=== PATIENT | female | born 2000 | race Caucasian/White ===

== ENCOUNTER 2019-03-03 13:54 | Emergency (ER) | payer OTHER ==
[2019-03-03 14:33] VITALS: BP 116/76
--- NOTE | 2019-03-03 15:02 | UC ---
Complaint Female HPI - HPI Summary HPI Summary: Pt presents with c/o dysuria, thick, yellow, discharge, foul smelling X 1 week. Pt is concerned that she may have a STD. Pt also c/o pelvic discomfort - History Of Current Complaint Chief Complaint: UCGU Stated Complaint: PERSONAL Time Seen by Provider: 03/03/19 14:46 Hx Obtained From: Patient Hx Last Menstrual Period: 02/21/19 ?: No Onset/Duration: Gradual Onset, Lasting Days, Still Present, Worse Since - onset Timing: Constant Severity Initially: Mild Severity Currently: Mild Pain Intensity: 4 Character: Dull, Cramping, Colicy Aggravating Factor(s): Urination Associated Signs And Symptoms: Positive: Vaginal Discharge - Risk Factors Ectopic Risk Factor: Negative Ovarian Torsion Risk Factor: Reproductive Age - Allergies/Home Medications Allergies/Adverse Reactions: Allergies Allergy/AdvReac Type Severity Reaction Status Date / Time clindamycin Allergy Hives Verified 03/03/19 14:28 Penicillins Allergy Anaphylatic Verified 03/03/19 14:28 Shock Home Medications: Home Medications Albuterol HFA INHALER* [Ventolin HFA Inhaler*] 1 - 2 puff INH Q4H PRN 03/03/19 [ History Confirmed 03/03/19] Cetirizine* [ZyrTEC 10 MG TAB*] 10 mg PO DAILY 03/03/19 [History Confirmed 03/03] Oral Control 1 tab PO DAILY 03/03/19 [History Confirmed 03/03/19] PMH/Surg Hx/FS Hx/Imm Hx Previously Healthy: Yes - Surgical History Surgical History: None - Family History Known Family History: Positive: Cardiac Disease - Social History Occupation: Student Lives: Dormitory/Roommates Alcohol Use: Occasionally Substance Use Type: None Smoking Status (MU): Never Smoked Tobacco Have You Smoked in the Last Year: No - Immunization History Vaccination Up to Date: Yes Review of Systems All Other Systems Reviewed And Are Negative: Yes Constitutional: Positive: Negative Skin: Positive: Negative Eyes: Positive: Negative ENT: Positive: Negative Respiratory: Positive: Negative Cardiovascular: Positive: Negative Gastrointestinal: Positive: Negative Genitourinary: Positive: Dysuria, Vaginal/Penile Burning, Vaginal/Penile Discharge Motor: Positive: Negative Neurovascular: Positive: Negative Musculoskeletal: Positive: Negative Neurological: Positive: Negative Psychological: Positive: Negative Is Patient Immunocompromised?: No Physical Exam Triage Information Reviewed: Yes Appearance: Well-Appearing Vital Signs: Initial Vital Signs Temp 98.3 F 03/03/19 14:24 Pulse 99 03/03/19 14:24 Resp 16 03/03/19 14:24 BP 116/76 03/03/19 14:24 Pulse Ox 100 03/03/19 14:24 Vital Signs Reviewed: Yes Eye Exam: Normal ENT Exam: Normal Dental Exam: Normal Neck exam: Normal Respiratory Exam: Normal Cardiovascular Exam: Normal Abdominal Exam: Normal Abdomen Description: Positive: Nontender Musculoskeletal Exam: Normal Neurological Exam: Normal Psychological Exam: Normal Skin Exam: Normal Complaint Female Dx - Differential Dx/Diagnosis Differential Diagnosis/HQI/PQRI: Sexually Transmitted Disease, Urinary Tract Infection Provider Diagnosis: Vaginitis, UTI (urinary tract infection) Discharge ED - Sign-Out/Discharge Documenting (check all that apply): Patient Departure All imaging exams completed and their final reports reviewed: No Studies - Discharge Plan Condition: Stable Disposition: HOME Prescriptions: Fluconazole 150 MG TAB* [Diflucan 150 MG TAB*] 150 mg PO DAILY #5 tablet metroNIDAZOLE VAGINAL 0.75%* 1 applic VAGINAL BEDTIME 5 Days #5 tube Nitrofurantoin Monohyd/M-Cryst [Macrobid 100 mg Capsule] 100 mg PO Q12H #10 cap Patient Education Materials: Vaginitis (ED) Referrals: [facility] [Outside] - If Needed No Primary Care Phys,NOPCP [Primary Care Provider] - - Billing Disposition and Condition Condition: STABLE Disposition: Home - Attestation Statements Provider Attestation: I was available for consult. This patient was seen by the ROSA. The patient was not presented to , seen by or examined by la -Martin Walker MD Addendum entered and electronically signed by Akin SHIN,Leeann Diez NP 07/21 17:16: UC Addendum Addendum: Pelvic exam: Thick yellow discharge in vaginal canal, cervix non-friable, no strawberry cervix. no lesions or vessicles.
[2019-03-05 14:04] LABS: Chlamydia trachomatis NAA Negative (Negative); Neisseria gonorrhoeae (GC) NAA Negative (Negative)
== END 2019-03-03 15:30 | disposition home or self-care (01) ==
LOC: UCCORT 13:54
DX: N76.0 Acute vaginitis (principal); N39.0 Urinary tract infection, site not specified; Z88.0 Allergy status to penicillin; Z88.1 Allergy status to other antibiotic agents
CPT/HCPCS: 81003; 87086; 87106; 87480; 87491; 87510; 87591; 87660; 99202; G0463

== ENCOUNTER 2019-03-10 07:05 | Emergency (ER) | payer OTHER ==
[2019-03-10 07:15] VITALS: BP 110/64
--- NOTE | 2019-03-10 07:52 | UC ---
Respiratory Complaint HPI - HPI Summary HPI Summary: 18 year old female presents with complaint of worsening sinus pain and chest congestion over the past week. She states she has tried otc medications recommended by her [facility]. Awakens with a productive cough, denies fever. Notes slight increase in her asthma sx that is relieved by her albuterol inhaler. - History of Current Complaint Chief Complaint: UCRespiratory Stated Complaint: COUGH CONGESTION Time Seen by Provider: 03/10/19 07:45 Hx Obtained From: Patient Hx Last Menstrual Period: 02/20/19 Onset/Duration: Gradual Onset, Lasting Weeks - One week. Severity Initially: Mild Severity Currently: Moderate Pain Intensity: 0 Character: Cough: Nonproductive Aggravating Factors: Recumbent Position Alleviating Factors: Bronchodilator, Upright Position Associated Signs And Symptoms: Positive: Nasal Congestion, Sinus Discomfort - Maxillary sinus tenderness. Negative: Dyspnea, Fever, Chills, Pleuritic Chest Pain, Wheezing, Hemoptysis - Allergies/Home Medications Allergies/Adverse Reactions: Allergies Allergy/AdvReac Type Severity Reaction Status Date / Time clindamycin Allergy Hives Verified 03/10/19 07:16 Penicillins Allergy Anaphylatic Verified 03/10/19 07:16 Shock PMH/Surg Hx/FS Hx/Imm Hx Previously Healthy: Yes Respiratory History: Asthma - Surgical History Surgical History: None - Family History Known Family History: Positive: Cardiac Disease - Social History Alcohol Use: Occasionally Substance Use Type: None Smoking Status (MU): Never Smoked Tobacco Have You Smoked in the Last Year: No - Immunization History Vaccination Up to Date: Yes Review of Systems All Other Systems Reviewed And Are Negative: Yes Constitutional: Negative: Fever, Chills Skin: Negative: Rash Eyes: Negative: Blurred Vision, Diplopia, Drainage, Eye Redness ENT: Positive: Nasal Discharge, Sinus Congestion, Sinus Pain/Tenderness - maxillary. Negative: Epistaxis, Sore Throat, Ear Ache Respiratory: Positive: Shortness Of Breath - Slight increase from baseline, relieved with albuterol., Cough Cardiovascular: Negative: Palpitations, Chest Pain Gastrointestinal: Negative: Abdominal Pain, Vomiting, Diarrhea, Nausea Genitourinary: Negative: Dysuria, Hematuria, Frequency, Urgency, Vaginal/Penile Discharge Motor: Negative: Decreased ROM Musculoskeletal: Negative: Calf Tenderness, Decreased ROM, Edema Neurological: Negative: Headache, Weakness Is Patient Immunocompromised?: No Physical Exam Triage Information Reviewed: Yes Appearance: Well-Appearing Vital Signs: Initial Vital Signs Temp 99.1 F 03/10/19 07:13 Pulse 83 03/10/19 07:13 Resp 18 03/10/19 07:13 BP 110/64 03/10/19 07:13 Pulse Ox 100 03/10/19 07:13 Vital Signs Reviewed: Yes Eyes: Positive: Conjunctiva Clear ENT: Positive: Pharynx normal, Nasal congestion, TMs normal, Hoarse voice, Sinus tenderness - Maxillary. Negative: Tonsillar swelling, Muffled voice Neck: Positive: Supple, Nontender, No Lymphadenopathy Respiratory: Positive: Lungs clear, Normal breath sounds. Negative: Crackles, Rhonchi, Stridor, Wheezing Cardiovascular: Positive: RRR, No Murmur Abdomen Description: Positive: Nontender, Soft Musculoskeletal: Positive: ROM Intact Neurological: Positive: Alert Skin: Negative: Rashes Respiratory Course/Dx - Course Course Of Treatment: Sx for one week. Tried otc recommendations that [facility] recommended without relief. - Differential Dx/Diagnosis Differential Diagnosis/HQI/PQRI: Asthma, Bronchitis Provider Diagnosis: Acute sinusitis Discharge ED - Sign-Out/Discharge Documenting (check all that apply): Patient Departure All imaging exams completed and their final reports reviewed: No Studies - Discharge Plan Condition: Stable Disposition: HOME Prescriptions: Azithromyxin JACIEL (NF) [Z-Jaciel (Zithromax) 250 mg tabs #6] 2 tab PO .TODAY, THEN 1 DAILY #6 tab Fluconazole 150 MG TAB* [Diflucan 150 MG TAB*] 150 mg PO ONCE #1 tablet Patient Education Materials: Sinusitis (ED) Referrals: No Primary Care Phys,NOPCP [Primary Care Provider] - Additional Instructions: Take all the antibiotics as prescribed. You may also take ibuprofen and Mucinex as needed. Only take the Diflucan if symptoms of yeast infection develop. Follow -up if your symptoms persist or worsen. - Billing Disposition and Condition Condition: STABLE Disposition: Home
== END 2019-03-10 08:08 | disposition home or self-care (01) ==
LOC: UCCORT 07:05
DX: J01.90 Acute sinusitis, unspecified (principal)
CPT/HCPCS: 99212; G0463

== ENCOUNTER 2019-09-29 12:48 | Emergency (ER) | payer MEDICAID, OTHER ==
--- NOTE | 2019-09-29 13:26 | UC ---
General HPI - HPI Summary HPI Summary: 19 year old female presents with complaint of her right earring ripping through her ear two nights ago and sinus congestion and pressure after traveling to [place] last week. She denies active bleeding, no pain from the laceration. Patient stated the area was already stretched out from wearing heavy earrings. She notes a runny nose, facial pressure, decreased smell and taste, and green productive cough for two weeks. Subjective fever two nights ago, did not check her temperature. No abnormal shortness of breath and has not needed her rescue inhaler. Stated this occurs yearly at the beginning of allergy season for her. Started using Zyrtec last week with some improvement of sx. States she few from [place] to [place] on 09/15/19 and returned from [place] through [facility] on 09/20/19. Denies known contact with anyone who has been isolated, quarantined, or tested positive for COVID-19. Per CDC guidelines COVID-19 testing is recommended. - History of Current Complaint Chief Complaint: UCRespiratory Stated Complaint: EAR LAC/CONGESTION Time Seen by Provider: 09/29/19 13:10 Hx Last Menstrual Period: 09/25/19 Pain Intensity: 0 - Allergy/Home Medications Allergies/Adverse Reactions: Allergies Allergy/AdvReac Type Severity Reaction Status Date / Time clindamycin Allergy Hives Verified 09/29/19 13:09 Penicillins Allergy Anaphylatic Verified 09/29/19 13:09 Shock Home Medications: Home Medications Albuterol HFA INHALER* [Ventolin HFA Inhaler*] 1 - 2 puff INH Q4H PRN 03/03/19 [ History Confirmed 09/29/19] Cetirizine* [ZyrTEC 10 MG TAB*] 10 mg PO DAILY PRN 03/03/19 [History Confirmed 09/29/19] PMH/Surg Hx/FS Hx/Imm Hx Previously Healthy: Yes Respiratory History: Asthma - Surgical History Surgical History: None - Family History Known Family History: Positive: Cardiac Disease - Social History Alcohol Use: Occasionally Substance Use Type: None Smoking Status (MU): Never Smoked Tobacco Have You Smoked in the Last Year: No - Immunization History Vaccination Up to Date: Yes Review of Systems All Other Systems Reviewed And Are Negative: Yes Constitutional: Positive: Fever - two days ago, now resolved. Skin: Positive: Negative Eyes: Positive: Negative ENT: Positive: Nasal Discharge, Sinus Congestion Respiratory: Positive: Shortness Of Breath - mild due to her asthma.. Negative : Cough Cardiovascular: Positive: Chest Pain. Negative: Palpitations Gastrointestinal: Negative: Abdominal Pain, Vomiting, Diarrhea, Nausea Genitourinary: Positive: Negative Motor: Positive: Negative Neurovascular: Positive: Negative Musculoskeletal: Positive: Negative Neurological/Mental Status: Positive: Negative Psychological: Positive: Negative Is Patient Immunocompromised?: No Physical Exam Triage Information Reviewed: Yes Appearance: Well-Appearing, Well-Nourished Vital Signs Reviewed: Yes Eye Exam: Normal ENT: Positive: Pharynx normal, Nasal congestion, TMs normal Neck: Positive: Supple, Nontender, No Lymphadenopathy Respiratory: Positive: Lungs clear, No respiratory distress. Negative: Crackles , Rhonchi, Wheezing Cardiovascular: Positive: RRR, No Murmur Abdomen Description: Positive: Nontender, Soft Musculoskeletal Exam: Normal Neurological Exam: Normal Psychological Exam: Normal Skin Exam: Normal Course/Dx - Course Course Of Treatment: COVID-19 testing and self isolation is recommended. URI sx are mild at this time , symptomatic treatment is recommended. Due to laceration being 48 hours old, it is too old to repair. I recommend she follow with a Plastic Surgeon for her ear laceration. - Diagnoses Provider Diagnosis: Upper respiratory infection Discharge ED - Sign-Out/Discharge Documenting (check all that apply): Patient Departure All imaging exams completed and their final reports reviewed: No Studies - Discharge Plan Condition: Stable Disposition: HOME Patient Education Materials: Upper Respiratory Infection (DC) Forms: COVID-19 Tested & Isolation Referrals: No Primary Care Phys,NOPCP [Primary Care Provider] - Julio Gutierres MD [Medical Doctor] - Additional Instructions: Follow self isolation guidelines until you are contacted with your COVID-19 results as per instructions attached. Your flu test was negative. Recommend symptomatic treatment for your sinus congestion with an antihistamine and Tylenol as needed. Contact the plastic surgeon in a few weeks if your ear does not heal on it's own. Follow-up if your respiratory symptoms persist or worsen. - Billing Disposition and Condition Condition: STABLE Disposition: Home
[2019-09-29 13:52] VITALS: BP 104/68
--- OUTSIDE RECORDS SUMMARY | 2019-09-29 14:02 | XMS REPORT | Continuity of Care Document ---
:2000 External Reference #:[id number] Author Name Ambreen Rivera NP Address [address] [place] [address] Care Team Providers Name Role Phone Yes Care Team Information Judicial Reporter Unavailable Problems Description No Information Available Social History Type Date Description Comments Sex Female Tobacco Use Reviewed: 05/09/19 Never Smoked Cigars Tobacco Use Reviewed: 05/09/19 Never Smoked A Pipe Smoking Status Reviewed: 05/09/19 Never Smoked A Pipe Tobacco Use Reviewed: 05/09/19 Never Used Smokeless Tobacco ETOH Use Occasionally consumes alcohol Tobacco Use Reviewed: 05/09/19 Patient has never smoked Recreational Drug Use Denies Drug Use Recreational Drug Use Teaching provided regarding Naloxone/Narcan Training Available At [facility] Tattoo/Piercing Tattoos professionally done Allergies, Adverse Reactions, Alerts Active Allergies Reaction Severity Comments Date Environmental 05/09/2019 Penicillin 05/09/2019 Clindamycin 05/09/2019 Cats 08/13/2019 Medications Active Medications SIG Qnty Indications Ordering Provider Date Fluconazole one tab orally x 1tabs B37.3 Ambreen Rivera NP 08/13/2019 150mg Tablets one dose Ventolin HFA Ambreen Rivera NP 05/09/2019 108(90Base) mcg/Act Aerosol Zyrtec Allergy Unknown History Medications Fluconazole one tab orally x one 1tabs Ambreen Rivera, 06/03/2019 - 150mg dose [employer] EVALUATION MANAGER 08/13/2019 Tablets Doxycycline Hyclate one by mouth twice a 14caps Ambreen Rivera, 2018 - day x 7 days [employer] EVALUATION MANAGER 08/13/2019 100mg Capsules Doxycycline Hyclate one by mouth twice a 14caps Ambreen Rivera, 2018 - day x 7 days [employer] EVALUATION MANAGER 08/13/2019 100mg Capsules Terconazole one applicatorful 45gm B37.3 Ambreen Rivera, 05/09/2019 - 0.4% vaginally x 7 days [employer] EVALUATION MANAGER 08/13/2019 Cream at at bedtime Immunizations Description No Information Available Vital Signs Date Vital Result Comment 08/13/2019 12:37pm Body Temperature 97.9 F BP Systolic 98 mmHg electronic BP Diastolic 70 mmHg electronic Heart Rate 104 /min Height 62.5 inches 5'2.50" Weight 124.00 lb BMI (Body Mass Index) 22.3 kg/m2 05/09/2019 12:02pm Body Temperature 97.9 F BP Systolic 99 mmHg BP Diastolic 68 mmHg Heart Rate 101 /min Height 62.5 inches 5'2.50" Weight 123.00 lb BMI (Body Mass Index) 22.1 kg/m2 Results Test Acquired Date Facility Test Result H/L Range Note Laboratory test 08/13/2019 [facility] HIV Rapid... non reactive finding Hep C Rapid Test non reactive Wet Prep.... 08/13/2019 [facility] WBC Smear many Clue Cells Vag Fluid Wet Prep 0 Anna Wet Prep many Lactobacillus Wet Prep few Whiff Wet Prep negative Bacteria Wet Prep n/a PH Wet Prep 4.5 Misc Other Test no trich sen Laboratory test finding 08/13/2019 [facility] Test negative Urine..... Laboratory test finding 05/09/2019 [facility] Mycoplasma Hominis/ see note 1 Ureaplasma Culture Enhanced PDF Report [id number] SEE IMAGE Laboratory test finding 05/09/2019 [facility] HIV Rapid... non reactive Hep C Rapid Test non reactive Chlamydia/N. 05/09/2019 [facility]BL Chlamydia NOT DETECTED Normal Not Detected Gonorrhoeae Rna, Trachomatis Tma, Uroge Rna, Tma, Urogenital Neisseria Gonorrhoeae Rna, Tma, Urogenital NOT DETECTED Normal Not Detected Comment (SEE NOTE) 2 Laboratory test finding 05/09/2019 [facility] Enhanced PDF Report SEE IMAGE [id number] Wet Prep.... 05/09/2019 [facility] WBC Smear fwe Clue Cells Vag Fluid Wet Prep 0 Anna Wet Prep many Lactobacillus Wet Prep few Whiff Wet Prep neg. Bacteria Wet Prep n/a PH Wet Prep 4.5 Misc Other Test no trich seen Laboratory test finding 05/09/2019 [facility] Trichomonas negative 1 UREAPLASMA CULT (MYCO. T) RESULT/COMMENT: * Ureaplasma urealyticum isolated MYCOPLASMA HOMINIS CULT. RESULT/COMMENT: Mycoplasma hominis not isolated. => REVISED: Change in test result(s) PLEASE DISREGARD PREVIOUSLY REPORTED INFORMATION BELOW: (The information below was originally reported on 05/16/2019 at 7:12 PM) MYCOPLASMA HOMINIS/ UREAPLASMA CULTURE see note ABN UREAPLASMA CULT (MYCO. T) RESULT/COMMENT: * Ureaplasma urealyticum isolated 2 This test was performed using the APTIMA COMBO2 Assay ([employer] The analytical performance characteristics of this assay, when used to test [employer] specimens have been determined by [employer]. Procedures Description No Information Available Medical Devices Description No Information Available Encounters Type Date Location Provider Dx Diagnosis Office Visit 05/09/2019 [facility] Ambreen Rivera NP B37.3 Candidiasis of vulva 11:30a and vagina Z30.41 Encounter for surveillance of contraceptive pills Z11.3 Encntr screen for infections w sexl mode of transmiss Z11.4 Encounter for screening for human immunodeficiency virus Z11.59 Encounter for screening for other viral diseases Z13.9 Encounter for screening, unspecified Assessments Date Code Description Provider 08/13/2019 B37.3 Candidiasis of vulva and vagina Ambreen Rivera NP 08/13/2019 Z30.09 Encounter for other general counseling and Ambreen Rivera NP advice on contraception 08/13/2019 Z11.3 Encounter for screening for infections with a Ambreen Rivera NP predominantly sexual mode of transmission 08/13/2019 Z11.4 Encounter for screening for human Ambreen Rivera NP immunodeficiency virus 08/13/2019 Z11.59 Encounter for screening for other viral diseases Ambreen Rivera NP 08/13/2019 Z32.02 Encounter for test, result negative Ambreen Rivera NP 08/13/2019 Z12.4 Encounter for screening for malignant neoplasm Ambreen Rivera NP of cervix 05/09/2019 B37.3 Candidiasis of vulva and vagina Ambreen Rivera NP 05/09/2019 Z30.41 Encounter for surveillance of contraceptive Ambreen Rivera NP pills 05/09/2019 Z11.3 Encounter for screening for infections with a Ambreen M Kelchner, [employer] EVALUATION MANAGER predominantly sexual mode of transmission 05/09/2019 Z11.4 Encounter for screening for human Ambreen Rivera NP immunodeficiency virus [HIV] 05/09/2019 Z11.59 Encounter for screening for other viral diseases Ambreen Rivera NP 05/09/2019 Z13.9 Encounter for screening, unspecified Ambreen Rivera NP Plan of Treatment 08/13/2019 - Ambreen Merlin Nicole, NPB37.3 Candidiasis of vulva and vaginaNew Medication:Fluconazole 150 mg - one tab orally x one doseComments:Patient has recurrent yeast infection. She took one tablet Fluconazole last night. Advised one more tab fluconazole in 72 hours from last dose. Advised no sex. No alcohol. Avoid sugar. Start probiotics. Eat low sugar yogurt. Follow up one week. If she still has a yeast infection, consider blood tests for thyroid and DM. Patient states understanding.Follow up:one week with KIPZ30.09 Encounter for other general counseling and advice on contraceptionComments:Patient stopped her oral contraception 3 weeks ago upon advise from her CORPORATE BANKING OFFICER due to her repeated yeast infections. She used a condom for sex 2 weeks ago but condom broke. UPT is negative today. Advised patient to abstain until yeast infection is resolved. She is possibly interested in an IUD but is notsure. Will discuss contraception options further at her follow up appointment.Z11.3 Encounter for screening for infections with a predominantly sexual mode of transmissionComments:Reviewed STD risks and prevention with patient. Patient states understanding.Z11.4 Encounter for screening for human immunodeficiency mwipcK94.59 Encounter for screening for other viral [id number] Encounter for test, result [id number] Encounter for screening for malignant neoplasm of cervix Functional Status Description No Information Available Mental Status Description No Information Available Referrals Description No Information Available
--- OUTSIDE RECORDS SUMMARY | 2019-09-29 14:02 | XMS REPORT | Continuity of Care Document ---
:1998 External Reference #:[id number] Author Name Ambreen Rivera NP Address [address] [place] [address] Care Team Providers Name Role Phone Yes Care Team Information Business Continuity Analyst Unavailable Problems Description No Information Available Social [...] Teaching provided regarding Naloxone/Narcan Training Available At [facility] Tattoo/Piercing Tattoos professionally done Allergies, Adverse Reactions, [...] 1tabs Ambreen Rivera, 06/03/2019 - 150mg dose BUSINESS PROGRAMMER 08/13/2019 Tablets Doxycycline Hyclate one by mouth twice a 14caps Ambreen Rivera, 2018 - day x 7 days BUSINESS PROGRAMMER 08/13/2019 100mg Capsules Doxycycline Hyclate one by mouth twice a 14caps Ambreen Rivera, 2018 - day x 7 days BUSINESS PROGRAMMER 08/13/2019 100mg Capsules Terconazole one applicatorful 45gm B37.3 Ambreen Rivera, 05/09/2019 - 0.4% vaginally x 7 days BUSINESS PROGRAMMER 08/13/2019 Cream at at bedtime Immunizations Description [...] Date Facility Test Result H/L Range Note Thinprep Tis 08/13/2019 [facility] Clinical None given Normal Reactive/ Pap Reflex HPV Information: cand/t Mrna E6/E7 LMP: NONE GIVEN Normal Prev. Pap: NONE GIVEN Normal Prev. BX: NONE GIVEN Normal Source: [facility] Normal Statement Of Adequacy: (SEE NOTE) Normal 1 Interpretation/Result: (SEE NOTE) 2 Infection: Fungal organisms <SEE NOTE> Normal 3 Comment: This Pap test pierre <SEE NOTE> Normal 4 Tin Cutter: (SEE NOTE) Normal 5 Pathologist: (SEE NOTE) Normal 6 Comment (SEE NOTE) 7 Laboratory test 08/13/2019 [facility] Enhanced PDF SEE IMAGE finding Report [id number] Chlamydia/N. 08/13/2019 [facility] Chlamydia NOT DETECTED Normal Not Detected Gonorrhoeae Rna, Trachomatis Tma, Uroge Rna, Tma, Urogenital Neisseria Gonorrhoeae Rna, Tma, Urogenital NOT DETECTED Normal Not Detected Comment (SEE NOTE) 8 Laboratory test 08/13/2019 [facility] Enhanced PDF Report SEE IMAGE finding [id number] Laboratory test 08/13/2019 [facility] HIV Rapid... non reactive finding Hep C Rapid Test non reactive Wet Prep.... 08/13/2019 [facility] WBC Smear many Clue Cells Vag Fluid Wet Prep 0 Anna Wet Prep many Lactobacillus Wet Prep few Whiff Wet Prep negative Bacteria Wet Prep n/a PH Wet Prep 4.5 Misc Other Test no trich sen Laboratory test finding 08/13/2019 [facility] Test negative Urine..... Laboratory test finding 05/09/2019 [facility] Mycoplasma Hominis/ see note 9 Ureaplasma Culture Enhanced PDF Report [id number] SEE IMAGE Laboratory test finding 05/09/2019 [facility] HIV Rapid... non reactive Hep C Rapid Test non reactive Chlamydia/N. 05/09/2019 [facility] Chlamydia NOT DETECTED Normal Not Detected Gonorrhoeae Rna, Trachomatis Tma, Uroge Rna, Tma, Urogenital Neisseria Gonorrhoeae Rna, Tma, Urogenital NOT DETECTED Normal Not Detected Comment (SEE NOTE) 10 Laboratory test finding 05/09/2019 [facility] Enhanced PDF Report SEE IMAGE [id number] Wet Prep.... 05/09/2019 [facility] WBC Smear fwe Clue Cells Vag Fluid Wet Prep 0 Anna Wet Prep many Lactobacillus Wet Prep few Whiff Wet Prep neg. Bacteria Wet Prep n/a PH Wet Prep 4.5 Misc Other Test no trich seen Laboratory test finding 05/09/2019 [facility] Trichomonas negative 1 Satisfactory for evaluation. Endocervical/transformation zone component present. 2 Negative for intraepithelial lesion or malignancy. Reactive cellular changes associated with repair 3 Fungal organisms morphologically consistent with Anna spp. 4 This Pap test has been evaluated with computer assisted technology. 5 EMP, CT(ASCP) CT screening location: [facility], [address] [place] [address], [place] [address]. 6 Dallas Sylvester M.D. Board Certified in Anatomic Pathology and Cytopathology (electronic signature) For questions regarding this report call Anatomic Pathology at [phone] Dallas Sylvester MD, Computer Systems Information Director [facility] [place], [place] 7 EXPLANATORY NOTE: The Pap is a screening test for cervical cancer. It is not a diagnostic test and is subject to false negative and false positive results. It is most reliable when a satisfactory sample, regularly obtained, is submitted with relevant clinical findings and history, and when the Pap result is evaluated along with historic and current clinical information. 8 The analytical performance characteristics of this assay, when used to test SurePath(TM) specimens have been determined by [facility]. The modifications have not been cleared or approved by the FDA. This assay has been validated pursuant to the CLIA regulations and is used for clinical purposes. For additional information, please refer to https://education.Logicalware/faq/MQM769 (This link is being provided for information/ educational purposes only.) 9 UREAPLASMA CULT (MYCO. T) RESULT/COMMENT: * Ureaplasma urealyticum isolated MYCOPLASMA HOMINIS CULT. RESULT/COMMENT: Mycoplasma hominis not isolated. => REVISED: Change in test result(s) PLEASE DISREGARD PREVIOUSLY REPORTED INFORMATION BELOW: (The information below was originally reported on 05/16/2019 at 7:12 PM) MYCOPLASMA HOMINIS/ UREAPLASMA CULTURE see note ABN UREAPLASMA CULT (MYCO. T) RESULT/COMMENT: * Ureaplasma urealyticum isolated 10 This test was performed using the APTIMA COMBO2 Assay ([employer] The analytical performance characteristics of this assay, when used to test SurePath specimens have been determined by [facility]. Procedures Description No Information Available Medical Devices Description No Information Available Encounters Type Date Location Provider Dx Diagnosis Office Visit 08/13/2019 TOMMY Rivera NP B37.3 Candidiasis of vulva 12:00p and vagina Z30.09 Encounter for oth general coun and advice on contraception Z11.3 Encntr screen for infections w sexl mode of transmiss Z11.4 Encounter for screening for human immunodeficiency virus Z11.59 Encounter for screening for other viral diseases Z32.02 Encounter for test, result negative Z12.4 Encounter for screening for malignant neoplasm of cervix Z13.9 Encounter for screening, unspecified Office Visit 05/09/2019 11:30a [facility] Ambreen Rivera NP B37.3 Candidiasis of vulva and vagina Z30.41 Encounter for surveillance of [...] human Ambreen Rivera NP immunodeficiency virus [HIV] 08/13/2019 Z11.59 Encounter for screening for other viral diseases Ambreen Rivera NP 08/13/2019 Z32.02 Encounter for test, result negative Ambreen Rivera NP 08/13/2019 Z12.4 Encounter for screening for malignant neoplasm Ambreen Rivera NP of cervix 08/13/2019 Z13.9 Encounter for screening, unspecified Ambreen Rivera NP 05/09/2019 B37.3 Candidiasis of vulva and vagina Ambreen Rivera NP 05/09/2019 Z30.41 Encounter for surveillance of contraceptive Ambreen Rivera NP pills 05/09/2019 Z11.3 Encounter for screening for infections with a Ambreen Rivera NP predominantly sexual mode of transmission 05/09/2019 Z11.4 Encounter for screening for human Ambreen Rivera NP immunodeficiency virus [HIV] 05/09/2019 Z11.59 Encounter for screening for other viral diseases Ambreen Rivera NP 05/09/2019 Z13.9 Encounter for screening, unspecified Ambreen Rivera NP Plan of Treatment 08/13/2019 - Ambreen Rivera NPB37.3 Candidiasis of vulva and vaginaNew Medication:Fluconazole [...] 3 weeks ago upon advise from her MACHINE FILLER SERVICER due to her repeated yeast infections. She [...] understanding.Z11.4 Encounter for screening for human immunodeficiency virus [HIV]Z11.59 Encounter for screening for other viral stykaqmqW32.02 Encounter for test, result wmslwjwvC73.4 Encounter for screening for malignant neoplasm of gxyllwS01.9 Encounter for screening, unspecified Functional Status Description No Information Available Mental Status Description No Information Available Referrals Description No Information Available
--- OUTSIDE RECORDS SUMMARY | 2019-09-29 14:02 | XMS REPORT | Continuity of Care Document ---
:1998 External Reference #:[id number] Author Name Ambreen Rivera NP Address [address] [place] [address] Care Team Providers Name Role Phone Yes Care Team Information Sugar Coating Hand Unavailable Problems Description No Information Available Social [...] Teaching provided regarding Naloxone/Narcan Training Available At [facility] Tattoo/Piercing Tattoos professionally done Allergies, Adverse [...] 1tabs Ambreen Rivera, 06/03/2019 - 150mg dose SUBMARINE ADVISORY TEAM WATCH OFFICER 08/13/2019 Tablets Doxycycline Hyclate one by mouth twice a 14caps Ambreen Rivera, 2018 - day x 7 days SUBMARINE ADVISORY TEAM WATCH OFFICER 08/13/2019 100mg Capsules Doxycycline Hyclate one by mouth twice a 14caps Ambreen Rivera, 2018 - day x 7 days SUBMARINE ADVISORY TEAM WATCH OFFICER 08/13/2019 100mg Capsules Terconazole one applicatorful 45gm B37.3 Ambreen Rivera, 05/09/2019 - 0.4% vaginally x 7 days SUBMARINE ADVISORY TEAM WATCH OFFICER 08/13/2019 Cream at at bedtime Immunizations Description [...] Pap test pierre <SEE NOTE> Normal 4 [employer] [place]: (SEE NOTE) Normal 5 Pathologist: (SEE NOTE) Normal 6 Comment (SEE NOTE) 7 Laboratory test 08/13/2019 [facility] Enhanced PDF SEE IMAGE finding Report [id number] Chlamydia/N. 08/13/2019 [facility] Chlamydia NOT DETECTED Normal Not Detected Gonorrhoeae Rna, Trachomatis Tma, Uroge Rna, Tma, Urogenital Neisseria Gonorrhoeae Rna, Tma, Urogenital NOT DETECTED Normal Not Detected Comment (SEE NOTE) 8 Laboratory test 08/13/2019 [facility] Enhanced PDF Report SEE IMAGE finding [id number] Laboratory test 08/13/2019 [facility] HIV Rapid... non reactive finding Hep C Rapid Test non reactive Wet Prep.... 08/13/2019 [facility] WBC Smear many Clue Cells Vag Fluid Wet Prep 0 Anna Wet Prep many Lactobacillus Wet Prep few Whiff Wet Prep negative Bacteria Wet Prep n/a PH Wet Prep 4.5 Misc Other Test no trich sen Laboratory test finding 08/13/2019 [facility] Test negative Urine..... Laboratory test finding 05/09/2019 [facility] Mycoplasma Hominis/ see note 9 Ureaplasma Culture Enhanced PDF Report [id number] SEE IMAGE Laboratory test finding 05/09/2019 [facility] HIV Rapid... non reactive Hep C Rapid Test non reactive Chlamydia/N. 05/09/2019 [facility] Chlamydia NOT DETECTED Normal Not Detected Gonorrhoeae Rna, Trachomatis Tma, Uroge Rna, Tma, Urogenital Neisseria Gonorrhoeae Rna, Tma, Urogenital NOT DETECTED Normal Not Detected Comment (SEE NOTE) 10 Laboratory test finding 05/09/2019 [facility] Enhanced PDF Report SEE IMAGE [id number] Wet Prep.... 05/09/2019 [facility] WBC Smear fwe Clue Cells Vag Fluid Wet Prep 0 Anna Wet Prep many Lactobacillus Wet Prep few Whiff Wet Prep neg. Bacteria Wet Prep n/a PH Wet Prep 4.5 Misc Other Test no trich seen Laboratory test finding 05/09/2019 [facility] Trichomonas negative 1 Satisfactory for evaluation. Endocervical/transformation zone component present. 2 Negative for intraepithelial lesion or malignancy. Reactive cellular changes associated with repair 3 Fungal organisms morphologically consistent with Anna spp. 4 This Pap test has been evaluated with computer assisted technology. 5 EMP, CT(ASCP) CT screening location: [facility], [address] [place] [address], [place] [address]. 6 Dallas Sylvester M.D. Board Certified in Anatomic Pathology and Cytopathology (electronic signature) For questions regarding this report call Anatomic Pathology at [phone] Dallas Sylvester MD, Production Expediter [facility] [place], [place] 7 EXPLANATORY NOTE: The Pap is [...] test SurePath(TM) specimens have been determined by [facility]. The modifications have not been cleared or approved by the FDA. This assay has been validated pursuant to the CLIA regulations and is used for clinical purposes. For additional information, please refer to https://education.Picaboo/faq/LQL744 (This link is being provided for information/ [...] was performed using the APTIMA COMBO2 Assay ([employer] The analytical performance characteristics of this assay, when used to test SurePath specimens have been determined by [facility]. Procedures Description No Information Available Medical Devices [...] for screening, unspecified Office Visit 05/09/2019 11:30a [facility] Ambreen Rivera NP B37.3 Candidiasis of [...] 3 weeks ago upon advise from her DISK SANDER due to her repeated yeast infections. She [...] [HIV]Z11.59 Encounter for screening for other viral dgtxccgsY75.02 Encounter for test, result zbljyhxsW77.4 Encounter for screening for malignant neoplasm of wauokkQ16.9 Encounter for screening, unspecified Functional Status Description No Information Available Mental Status Description No Information Available Referrals Description No Information Available
--- OUTSIDE RECORDS SUMMARY | 2019-09-29 14:02 | XMS REPORT | Continuity of Care Document ---
:1998 External Reference #:[id number] Author Name Ambreen Rivera NP Address [address] [place] [address] Care Team Providers Name Role Phone Yes Care Team Information Set Up Machinist Unavailable Problems Description No Information Available Social [...] Teaching provided regarding Naloxone/Narcan Training Available At [facility] Tattoo/Piercing Tattoos professionally done Allergies, Adverse [...] 1tabs Ambreen Rivera, 06/03/2019 - 150mg dose I O PSYCHOLOGIST 08/13/2019 Tablets Doxycycline Hyclate one by mouth twice a 14caps Ambreen Rivera, 2018 - day x 7 days I O PSYCHOLOGIST 08/13/2019 100mg Capsules Doxycycline Hyclate one by mouth twice a 14caps Ambreen Rivera, 2018 - day x 7 days I O PSYCHOLOGIST 08/13/2019 100mg Capsules Terconazole one applicatorful 45gm B37.3 Ambreen Rivera, 05/09/2019 - 0.4% vaginally x 7 days I O PSYCHOLOGIST 08/13/2019 Cream at at bedtime Immunizations Description [...] Mass Index) 22.1 kg/m2 Results Test Acquired Facility Test Result H/L Range Note Date Chlamydia/N. 08/13/2019 [facility] Chlamydia NOT Normal Not Gonorrhoeae Trachomatis DETECTED Detected Rna, Tma, Uroge Rna, Tma, Urogenital Neisseria Gonorrhoeae Rna, Tma, Urogenital NOT DETECTED Normal Not Detected Comment (SEE NOTE) 1 Laboratory test 08/13/2019 [facility] Enhanced PDF Report SEE IMAGE finding [id number] Laboratory test 08/13/2019 [facility] HIV Rapid... non reactive finding Hep C Rapid Test non reactive Wet Prep.... 08/13/2019 [facility] WBC Smear many Clue Cells Vag Fluid Wet Prep 0 Anna Wet Prep many Lactobacillus Wet Prep few Whiff Wet Prep negative Bacteria Wet Prep n/a PH Wet Prep 4.5 Misc Other Test no trich sen Laboratory test finding 08/13/2019 [facility] Test negative Urine..... Laboratory test finding 05/09/2019 [facility] Mycoplasma Hominis/ see note 2 Ureaplasma Culture Enhanced PDF Report [id number] SEE IMAGE Laboratory test finding 05/09/2019 [facility] HIV Rapid... non reactive Hep C Rapid Test non reactive Chlamydia/N. 05/09/2019 [facility] Chlamydia NOT DETECTED Normal Not Detected Gonorrhoeae Rna, Trachomatis Tma, Uroge Rna, Tma, Urogenital Neisseria Gonorrhoeae Rna, Tma, Urogenital NOT DETECTED Normal Not Detected Comment (SEE NOTE) 3 Laboratory test finding 05/09/2019 [facility] Enhanced PDF Report SEE IMAGE [id number] Wet Prep.... 05/09/2019 [facility] WBC Smear fwe Clue Cells Vag Fluid Wet Prep 0 Anna Wet Prep many Lactobacillus Wet Prep few Whiff Wet Prep neg. Bacteria Wet Prep n/a PH Wet Prep 4.5 Misc Other Test no trich seen Laboratory test finding 05/09/2019 [facility] Trichomonas negative 1 The analytical performance characteristics of this assay, when used to test SurePath(TM) specimens have been determined by [employer]. The modifications have not been cleared or approved by the FDA. This assay has been validated pursuant to the CLIA regulations and is used for clinical purposes. For additional information, please refer to https://education.Backtrace I/O/faq/BOR886 (This link is being provided for information/ educational purposes only.) 2 UREAPLASMA CULT (MYCO. T) RESULT/COMMENT: * Ureaplasma urealyticum isolated MYCOPLASMA HOMINIS CULT. RESULT/COMMENT: Mycoplasma hominis not isolated. => REVISED: Change in test result(s) PLEASE DISREGARD PREVIOUSLY REPORTED INFORMATION BELOW: (The information below was originally reported on 05/16/2019 at 7:12 PM) MYCOPLASMA HOMINIS/ UREAPLASMA CULTURE see note ABN UREAPLASMA CULT (MYCO. T) RESULT/COMMENT: * Ureaplasma urealyticum isolated 3 This test was performed using the APTIMA COMBO2 Assay ([employer] The analytical performance characteristics of this assay, when used to test SurePath specimens have been determined by [facility]. Procedures Description No Information Available Medical Devices [...] for screening, unspecified Office Visit 05/09/2019 11:30a TOMMY Rivera NP B37.3 Candidiasis of vulva and [...] DM. Patient states understanding.Follow up:one week with NPZ30.09 Encounter for other general counseling and advice on contraceptionComments:Patient stopped her oral contraception 3 weeks ago upon advise from her KILN DRAWER due to her repeated yeast infections. She [...] [HIV]Z11.59 Encounter for screening for other viral spafewbgJ46.02 Encounter for test, result dsctlyzqH38.4 Encounter for screening for malignant neoplasm of kbphasT05.9 Encounter for screening, unspecified Functional Status Description No Information Available Mental Status Description No Information Available Referrals Description No Information Available
--- OUTSIDE RECORDS SUMMARY | 2019-09-29 14:02 | XMS REPORT | Continuity of Care Document ---
:1998 External Reference #:[id number] Author Name Ambreen Rivera NP Address [address] [place] [address] Care Team Providers Name Role Phone Yes Care Team Information Sports Medicine Coordinator Unavailable Problems Description No Information Available Social [...] Teaching provided regarding Naloxone/Narcan Training Available At [facility] Tattoo/Piercing Tattoos professionally done Allergies, [...] 1tabs Ambreen Rivera, 06/03/2019 - 150mg dose COMPUTER RECYCLING WORKER 08/13/2019 Tablets Doxycycline Hyclate one by mouth twice a 14caps Ambreen Rivera, 2018 - day x 7 days COMPUTER RECYCLING WORKER 08/13/2019 100mg Capsules Doxycycline Hyclate one by mouth twice a 14caps Ambreen Rivera, 2018 - day x 7 days COMPUTER RECYCLING WORKER 08/13/2019 100mg Capsules Terconazole one applicatorful 45gm B37.3 Ambreen Rivera, 05/09/2019 - 0.4% vaginally x 7 days COMPUTER RECYCLING WORKER 08/13/2019 Cream at at bedtime Immunizations Description [...] Result H/L Range Note Laboratory test 08/13/2019 [facility] HIV Rapid... non reactive finding Hep C Rapid Test non reactive Wet Prep.... 08/13/2019 [facility] WBC Smear many Clue Cells Vag Fluid Wet Prep 0 Anna Wet Prep many Lactobacillus Wet Prep few Whiff Wet Prep negative Bacteria Wet Prep n/a PH Wet Prep 4.5 Misc Other Test no trich sen Laboratory test finding 08/13/2019 [facility] Test negative Urine..... Laboratory test finding 05/09/2019 [facility] Mycoplasma Hominis/ see note 1 Ureaplasma Culture Enhanced PDF Report [id number] SEE IMAGE Laboratory test finding 05/09/2019 [facility] HIV Rapid... non reactive Hep C Rapid Test non reactive Chlamydia/N. 05/09/2019 [facility] Chlamydia NOT DETECTED Normal Not Detected Gonorrhoeae Rna, Trachomatis Tma, Uroge Rna, Tma, Urogenital Neisseria Gonorrhoeae Rna, Tma, Urogenital NOT DETECTED Normal Not Detected Comment (SEE NOTE) 2 Laboratory test finding 05/09/2019 [facility] Enhanced PDF Report SEE IMAGE [id number] Wet Prep.... 05/09/2019 [facility] WBC Smear fwe Clue Cells Vag Fluid Wet Prep 0 Anna Wet Prep many Lactobacillus Wet Prep few Whiff Wet Prep neg. Bacteria Wet Prep n/a PH Wet Prep 4.5 Misc Other Test no trich seen Laboratory test finding 05/09/2019 [facility] Trichomonas negative 1 UREAPLASMA CULT (MYCO. T) [...] was performed using the APTIMA COMBO2 Assay ([employer] The analytical performance characteristics of this assay, when used to test SurePath specimens have been determined by [facility]. Procedures Description No Information Available Medical Devices Description No Information Available Encounters Type Date Location Provider Dx Diagnosis Office Visit 05/09/2019 [facility] Ambreen Rivera NP B37.3 Candidiasis of vulva [...] NP Plan of Treatment 08/13/2019 - Ambreen Rivera, NPB37.3 Candidiasis of vulva and vaginaNew Medication:Fluconazole [...] 3 weeks ago upon advise from her SALES COMMUNICATIONS MANAGER due to her repeated yeast infections. She [...] [HIV]Z11.59 Encounter for screening for other viral bjuqwizeL77.02 Encounter for test, result xqfmqyilN90.4 Encounter for screening for malignant neoplasm of cervix Functional Status Description No Information Available Mental Status Description No Information Available Referrals Description No Information Available
--- OUTSIDE RECORDS SUMMARY | 2019-09-29 14:02 | XMS REPORT | Continuity of Care Document ---
:2000 External Reference #:[id number] Author Name Ambreen Rivera NP Address [address] [place] [address] Care Team Providers Name Role Phone Yes Care Team Information Interior Block Wirer Unavailable Problems Description No Information Available Social [...] 1tabs Ambreen Rivera, 06/03/2019 - 150mg dose [employer] 08/13/2019 Tablets Doxycycline Hyclate one by mouth twice a 14caps Ambreen Rivera, 2018 - day x 7 days [employer] 08/13/2019 100mg Capsules Doxycycline Hyclate one by mouth twice a 14caps Ambreen Rivera, 2018 - day x 7 days [employer] 08/13/2019 100mg Capsules Terconazole one applicatorful 45gm B37.3 Ambreen Rivera, 05/09/2019 - 0.4% vaginally x 7 days [employer] 08/13/2019 Cream at at bedtime Immunizations Description [...] H/L Range Note Laboratory test 08/13/2019 [facility] HIV Rapid... non reactive finding Hep C Rapid Test non reactive Wet Prep.... 08/13/2019 [facility] WBC Smear many Clue Cells Vag Fluid Wet Prep 0 Anna Wet Prep many Lactobacillus Wet Prep few Whiff Wet Prep negative Bacteria Wet Prep n/a PH Wet Prep 4.5 Misc Other Test no trich sen Laboratory test finding 08/13/2019 [facility] Test negative Urine..... Laboratory test finding 05/09/2019 [facility] Mycoplasma Hominis/ see note 1 Ureaplasma Culture Enhanced PDF Report [id number] SEE IMAGE Laboratory test finding 05/09/2019 [facility] HIV Rapid... non reactive Hep C Rapid Test non reactive Chlamydia/N. 05/09/2019 [facility] [place] PBL Chlamydia NOT DETECTED Normal Not Detected Gonorrhoeae Rna, Trachomatis Tma, Uroge Rna, Tma, Urogenital Neisseria Gonorrhoeae Rna, Tma, Urogenital NOT DETECTED Normal Not Detected Comment (SEE NOTE) 2 Laboratory test finding 05/09/2019 [facility] Enhanced PDF Report SEE IMAGE [id number] Wet Prep.... 05/09/2019 [facility] WBC Smear fwe Clue Cells Vag Fluid Wet Prep 0 Anna Wet Prep many Lactobacillus Wet Prep few Whiff Wet Prep neg. Bacteria Wet Prep n/a PH Wet Prep 4.5 Misc Other Test no trich seen Laboratory test finding 05/09/2019 [facility] Trichomonas negative 1 UREAPLASMA CULT (MYCO. [...] was performed using the APTIMA COMBO2 Assay ([employer] The analytical performance characteristics of this assay, when used to test [employer] specimens have been determined by [employer]. Procedures Description No Information Available Medical Devices Description No Information Available Encounters Type Date Location Provider Dx Diagnosis Office Visit 05/09/2019 [facility] Ambreen Rivera NP B37.3 Candidiasis of [...] for infections with a Ambreen M Kelchner, [employer] predominantly sexual mode of transmission 05/09/2019 Z11.4 [...] 3 weeks ago upon advise from her [employer] MAN due to her repeated yeast infections. She [...] understanding.Z11.4 Encounter for screening for human immunodeficiency msamlA17.59 Encounter for screening for other viral [id number] Encounter for test, result [id number] Encounter for screening for malignant neoplasm of cervix Functional Status Description No Information Available Mental Status Description No Information Available Referrals Description No Information Available
[2019-09-29 14:05] LABS: Influenza A Molecular Negative (Negative); Influenza B Molecular Negative (Negative)
--- NOTE | 2019-10-02 08:18 | UC ---
- Progress Note Progress Note: please call the pt. + COVID19 Detected cont. with symptomatic treatment self Quarantine for 2 weeks , go to ED if having chest pain / shortness of breath . please call ED before going in to inform them about + COVID19 Course/Dx - Diagnoses Provider Diagnoses: Upper respiratory infection Discharge ED - Sign-Out/Discharge Documenting (check all that apply): Patient Departure All imaging exams completed and their final reports reviewed: No Studies - Discharge Plan Condition: Stable Disposition: HOME Patient Education Materials: Upper Respiratory Infection (DC) Forms: COVID-19 Tested & Isolation Referrals: Julio Gutierres MD [Medical Doctor] - No Primary Care Phys,NOPCP [Primary Care Provider] - Additional Instructions: Follow self isolation guidelines until you are contacted with your COVID-19 results as per instructions attached. Your flu test was negative. Recommend symptomatic treatment for your sinus congestion with an antihistamine and Tylenol as needed. Contact the plastic surgeon in a few weeks if your ear does not heal on it's own. Follow-up if your respiratory symptoms persist or worsen. - Billing Disposition and Condition Condition: STABLE Disposition: Home
== END 2019-09-29 14:12 | disposition home or self-care (01) ==
LOC: UCCORT 12:48
DX: J06.9 Acute upper respiratory infection, unspecified (principal); B97.29 Other coronavirus as the cause of diseases classified elsewhere; S01.311A Laceration without foreign body of right ear, initial encounter; X58.XXXA Exposure to other specified factors, initial encounter; Y92.9 Unspecified place or not applicable; J45.909 Unspecified asthma, uncomplicated; Z88.1 Allergy status to other antibiotic agents; Z88.0 Allergy status to penicillin
CPT/HCPCS: 87635; 99212; G0463